=== PATIENT | female | born 1980 | race Caucasian/White ===

== ENCOUNTER 2022-12-06 12:43 | Outpatient (CLI) | payer OTHER, SELFPAY ==
--- NOTE | 2022-12-06 13:00 | CRLHL7_ITS ---
For Patients: As a result of the Century Cures Act, medical imaging exams and procedure reports are released immediately into your electronic medical record. You may view this report before your referring provider. If you have questions, please contact your health care provider. BILATERAL BREAST MRI WITHOUT AND WITH GADOLINIUM CLINICAL HISTORY: 42-year-old female with elevated risk of breast cancer due to strong family history. INDICATION FOR BREAST MRI: Screening breast MRI in this high-risk woman. COMPARISON STUDIES: Mammogram 05/11/2022, breast MRI 11/25/2021. CONTRAST: 15 cc Dotarem. TECHNIQUE: The patient was positioned prone using a breast coil. Multiple imaging sequences were obtained using 1-1.5 mm thick slices with no gap. The image sequences include T2-weighted STIR in the axial plane, T1-weighted nonfat-saturated gradient echo in the axial plane, pre- and post-contrast T1-weighted FLASH 3D with fat suppression in the axial plane, and T1-weighted FLASH high resolution 3D with fat suppression in the sagittal plane. Image post-processing was performed on a [employer] workstation. Complex 3D rendering including maximum intensity projections (MIPS) and volumetric renderings were obtained to optimize visualization of the extent of pathology and relationship to the nipple, skin, and chest wall. This aids in determining feasibility of breast conservation surgery. Subtraction, multiplanar reconstruction, mean curve determination, and angiogenesis mapping were also performed. The study was technically adequate. FINDINGS: Amount of Fibroglandular Tissue: Heterogeneous fibroglandular tissue. Breast Background Enhancement: Moderate. RIGHT Breast: No suspicious areas of enhancement. LEFT Breast: No suspicious areas of enhancement. Lymph Nodes: No adenopathy. IMPRESSIONS AND RECOMMENDATIONS: Negative, there is no MR evidence of malignancy. Continued annual screening mammography as clinically indicated screening breast MRI. The mammogram and MRI should be offset by six-month interval of time. BI-RADS Category 1: Negative Dictated by Gertrude Vicente MD @ 12/07/2022 3:03:12 PM tamara/Dictated by: Gertrude Vicente MD @ 12/07/2022 3:03:00 PM (Electronically Signed)
== END 2022-12-06 12:44 | disposition home or self-care (01) ==
PROVIDERS: PCP Family Medicine; Visit Provider Family Medicine
DX: Z12.31 Encounter for screening mammogram for malignant neoplasm of breast (principal); Z80.3 Family history of malignant neoplasm of breast
CPT/HCPCS: 77049; A9575

== ENCOUNTER 2023-12-15 14:20 | Outpatient (CLI) | payer BC, SELFPAY ==
--- NOTE | 2023-12-15 14:30 | MR_ITS ---
Patient: PARAG MERCADO Facility:?[facility] Patient ID:?[id number] Site Patient ID:?[id number]. Site :?[id number] Study:?MRI-Breast WO/W DOTAREM 18ML-12/15/2023 6:30:47 PM Ordering Physician:NATHAN Final Report: BILATERAL BREAST MRI WITHOUT AND WITH GADOLINIUM CLINICAL HISTORY: Patient with elevated risk of breast carcinoma due to dense breasts and a family history breast carcinoma including a mother diagnosed at age 48, as well as maternal grandmother in her 70s and paternal aunt in her 40s. 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 INDICATION FOR BREAST MRI: Screening breast MRI in this high-risk woman. COMPARISON STUDIES: MRI 12/06/2022, 11/25/2021. Mammogram 05/12/2023, 05/11/2022. CONTRAST: 18 ml Dotarem. TECHNIQUE: The patient was positioned prone using a breast coil. Multiple imaging sequences were obtained using 1-1.5 mm thick slices with no gap. The image sequences include T2-weighted STIR in the axial plane, T1-weighted nonfat-saturated gradient echo in the axial plane, pre- and post-contrast T1-weighted FLASH 3D with fat suppression in the axial plane, and T1-weighted FLASH high resolution 3D with fat suppression in the sagittal plane. Image post-processing was performed on a [employer] workstation. Complex 3D rendering including maximum intensity projections (MIPS) and volumetric renderings were obtained to optimize visualization of the extent of pathology and relationship to the nipple, skin, and chest wall. This aids in determining feasibility of breast conservation surgery. Subtraction, multiplanar reconstruction, mean curve determination, and angiogenesis mapping were also performed. The study was technically adequate. FINDINGS: Amount of Fibroglandular Tissue: Heterogeneous fibroglandular tissue. Breast Background Enhancement: Marked. RIGHT Breast: No suspicious areas of enhancement. LEFT Breast: No suspicious areas of enhancement. Lymph Nodes: No lymphadenopathy. IMPRESSIONS AND RECOMMENDATIONS: 1. No MRI evidence of malignancy in either breast. 2. Annual screening mammography is recommended. If clinically indicated, continued screening breast MRI may also be performed, staggered at six-month intervals with screening mammography. BI-RADS Category 1: Negative Dictated by Torri Cruz MD @ 12/20/2023 1:25:42 PM jj/Dictated by: Torri Cruz MD @ 12/20/2023 1:25:00 PM Signed by:?Torri Cruz MD @12/20/2023 5:15:19 PM (Electronic Signature)
== END 2023-12-15 14:21 | disposition home or self-care (01) ==
LOC: MRI 14:21
PROVIDERS: PCP Family Medicine; Visit Provider Family Medicine
DX: Z12.39 Encounter for other screening for malignant neoplasm of breast (principal); Z80.3 Family history of malignant neoplasm of breast
CPT/HCPCS: 77049; A9575

== ENCOUNTER 2024-12-20 14:44 | Outpatient (CLI) | payer BC, SELFPAY ==
--- NOTE | 2024-12-20 15:30 | CRLHL7_ITS ---
For Patients: As a result of the Century Cures Act, medical imaging exams and procedure reports are released immediately into your electronic medical record. You may view this report before your referring provider. If you have questions, please contact your health care provider. BILATERAL BREAST MRI WITHOUT AND WITH GADOLINIUM CLINICAL HISTORY: At increased risk for breast cancer due to family history of breast cancer including in her mother diagnosed at age 48. Personal history of benign LEFT breast biopsy in 2017 showing fibroadenoma. No current breast related concerns. INDICATION FOR BREAST MRI: High-risk screening breast MRI. COMPARISON STUDIES: Breast MRIs 12/15/2023 and 12/06/2022. Mammograms 05/13/2024 and 05/12/2023. CONTRAST: 20 mL IV Dotarem. TECHNIQUE: The patient was positioned prone using a breast coil. Multiple imaging sequences were obtained using 1-1.5 mm thick slices with no gap. The image sequences include T2-weighted STIR in the axial plane, T1-weighted nonfat-saturated gradient echo in the axial plane, pre- and post-contrast T1-weighted FLASH 3D with fat suppression in the axial plane, and T1-weighted FLASH high resolution 3D with fat suppression in the sagittal plane. Image post-processing was performed on a [employer] workstation. Complex 3D rendering including maximum intensity projections (MIPS) and volumetric renderings were obtained to optimize visualization of the extent of pathology and relationship to the nipple, skin, and chest wall. This aids in determining feasibility of breast conservation surgery. Subtraction, multiplanar reconstruction, mean curve determination, and angiogenesis mapping were also performed. The study was technically adequate. FINDINGS: Amount of Fibroglandular Tissue: Heterogeneous fibroglandular tissue. Breast Background Enhancement: Moderate. RIGHT Breast: There is no suspicious mass or non mass enhancement. LEFT Breast: There is susceptibility artifact in the upper outer breast from a biopsy marking clip at the site of the prior benign biopsy. There is no suspicious mass or non-mass enhancement. Lymph Nodes: No abnormal morphology lymph nodes. IMPRESSIONS AND RECOMMENDATIONS: 1. No MRI evidence of malignancy in either breast. 2. Annual screening mammography is recommended. If clinically indicated, continued screening breast MRI may also be performed, staggered at six-month intervals with screening mammography. BI-RADS Category 2: Benign. Dictated by Daiana Sapp MD @ 12/23/2024 8:36:50 AM/CRL:jmr JR/Dictated by: Daiana Sapp MD @ 12/23/2024 8:36:00 AM (Electronically Signed)
== END 2024-12-20 14:45 | disposition home or self-care (01) ==
LOC: MRI 14:46
PROVIDERS: PCP Family Medicine; Visit Provider Family Medicine
DX: Z12.39 Encounter for other screening for malignant neoplasm of breast (principal); Z80.3 Family history of malignant neoplasm of breast
CPT/HCPCS: 77049; A9575